=== PATIENT | female | born 1990 | race Two or more races ===

== ENCOUNTER → 2024-09-18 | Outpatient (REF) | payer OTHER | LOC: M LAB REF 17:00 | PROVIDERS: ATTEND Nurse Practitioner Adult Health | DX: R30.0 Dysuria (principal) ==

== ENCOUNTER 2024-10-17 03:41 | Emergency (ER) | payer OTHER ==
[2024-10-17 04:30] LABS: PLATELET COUNT, AUTOMATED 273 10^3/uL (150-450)
[2024-10-17 05:00] LABS: AMPHETAMINES LEVEL URINE NEGATIVE (NEGATIVE); BARBITURATES URINE NEGATIVE (NEGATIVE); BENZODIAZEPINES URINE NEGATIVE (NEGATIVE); CANNABINOIDS URINE NEGATIVE (NEGATIVE); COCAINE METABOLITE URINE NEGATIVE (NEGATIVE); METHADONE URINE NEGATIVE (NEGATIVE); OPIATES URINE NEGATIVE (NEGATIVE); PHENCYCLIDINE URINE NEGATIVE (NEGATIVE)
[2024-10-17 05:04] LABS: ALT/SGPT 18 U/L (7.0-40); AST/SGOT 22 U/L (<34); CALCIUM LEVEL 9.6 MG/DL (8.5-10.1); CARBON DIOXIDE LEVEL 22 MMOL/L (20-31); CHLORIDE LEVEL 106 MMOL/L (98-107); CREATININE FOR GFR 0.53 MG/DL (0.55-1.30); GLOMERULAR FILTRATION RATE > 90.0 (>60); POTASSIUM SERUM 4.3 MMOL/L (3.5-5.1); SALICYLATE LEVEL < 3.0 MG/DL (<30); SODIUM LEVEL 143 MMOL/L (136-145)
[2024-10-17 05:10] LABS: ETHYL ALCOHOL (ETHANOL) 0.039 % (0.000-0.010)
[2024-10-17 05:28] LABS: HCG, SERUM QUALITATIVE NEGATIVE (NEGATIVE)
[2024-10-17] MEDS: LORazepam 1 MG TAB PO ONE (06:22)
[2024-10-17 12:41] VITALS: BP 124/68; TEMP 98.6; O2SAT 99
== END 2024-10-17 12:42 | disposition home or self-care (01) ==
LOC: M ED 03:41
DX: F43.9 Reaction to severe stress, unspecified (principal); F41.1 Generalized anxiety disorder; F10.10 Alcohol abuse, uncomplicated

== ENCOUNTER → 2024-11-19 | Outpatient (CLI) | payer OTHER | LOC: M WHC 10:58 | PROVIDERS: ATTEND Family Medicine | DX: R59.0 Localized enlarged lymph nodes (principal) ==

== ENCOUNTER → 2024-12-18 | Outpatient (REF) | payer OTHER | LOC: M LAB REF 16:52 | PROVIDERS: ATTEND Family Medicine | DX: R30.0 Dysuria (principal) ==

== ENCOUNTER → 2024-12-30 | Outpatient (REF) | payer OTHER | LOC: M LAB REF 16:50 | PROVIDERS: ATTEND Family Medicine | DX: R30.0 Dysuria (principal) ==

== ENCOUNTER → 2024-12-30 | Outpatient (CLI) | payer OTHER | LOC: M RAD 10:49 | PROVIDERS: ATTEND Family Medicine | DX: R30.0 Dysuria (principal) ==